=== PATIENT | female | born 1990 | race Caucasian/White ===

== ENCOUNTER 2020-02-01 11:17 | Emergency (ER) | payer OTHER, MEDICAID, SELFPAY ==
[2020-02-01 11:20] VITALS: BP 147/81; PULSE 86; RESP 20; TEMP 36.9; O2SAT 99
--- NOTE | 2020-02-01 11:36 | PC.NURSE ---
Has been using inhaler at home for shortness of breath w/o improvement.
[2020-02-01 11:37] VITALS: BP 120/76; PULSE 82; RESP 16; O2SAT 99
--- NOTE | 2020-02-01 11:52 | DI.RAD.S_ITS ---
PROCEDURE: XR CHEST 1V INDICATIONS: Short of breath TECHNIQUE: One view of the chest was acquired. COMPARISON: [facility], RG, XR CXR 2V, 05/09/2006, 11:24. FINDINGS: Surgical changes and devices: None. Lungs and pleura: Lungs are clear. No pleural effusions or pneumothorax. Mediastinum: Mediastinal contours appear normal. Heart size is normal. Bones and chest wall: No suspicious bony lesions. Overlying soft tissues appear unremarkable. IMPRESSION: Clear lungs. No acute cardiopulmonary process is seen. Dictated by: Dejan Cardona M.D. on 02/01/2020 at 11:17 Approved by: Dejan Cardona M.D. on 02/01/2020 at 11:18
--- NOTE | 2020-02-01 11:55 | ED_ITS ---
HPI - SOB/Dyspnea <Cesia Sanchez STAFF RADIOLOGIST - Last Filed: 02/01/20 13:27> General Chief Complaint: Shortness of Breath/Dyspnea Stated Complaint: Really bad chest pain, inhaler not working Time Seen by Provider: 02/01/20 11:29 Source: patient Mode of arrival: Ambulatory Limitations: no limitations History of Present Illness HPI Narrative: 29yo female with a history of asthma and smoking, presents to the emergency department for shortness of breath and chest pain over the past few days. She states she has had a sore throat and a dry cough for the past month, her symptoms started around the same time as her mother symptoms. She states her mother was exposed to COVID-19 and developed mild cold symptoms but was not tested. Patient states she reports a constant 2/10 dull aching/sharp stabbing chest pain that is mainly located under left breast, the pain occasionally moves to the substernal area, and the right shoulder intermittently. She states she experiences intermittent sharp pain as well. At its worst, the severity is 8/10. Patient states the pain is worse with palpation, deep breath, and movement. She states sometimes she feels it is difficult to take a deep breath. She has been using her albuterol inhaler which she uses for asthma, that had worked for a while. However over the past few days she feels like her inhaler is not working, she does not use a spacer. She states today she feels like her chest is tight. She does have mild associated nausea. She reports she had a subjective fever about a week ago that lasted a few days, she did not measure her temperature. She takes methadone in usually has night sweats and is unsure if they are worse at this time, has been using methadone for years. 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 She denies any other symptoms such as headache, dizziness, productive cough, vomiting, diarrhea, abdominal pain, or any other concerns. She states she has and arm implant that she uses for control. Related Data Home Medications Medication Instructions Recorded Confirmed albuterol sulfate 2 inh INHALATION QID PRN 02/01/20 02/01/20 methadone 40 mg PO DAILY 02/01/20 02/01/20 Previous Rx's Medication Instructions Recorded cyclobenzaprine 10 mg PO BEDTIME PRN #14 tab 02/01/20 Allergies Allergy/AdvReac Type Severity Reaction Status Date / Time cefaclor [From [facility]] Allergy Unknown Verified 02/01/20 11:30 sulfamethoxazole Allergy Unknown Verified 02/01/20 11:30 [From [facility]] trimethoprim [From [facility]] Allergy Unknown Verified 02/01/20 11:30 Review of Systems <RAMIN Berumen - Last Filed: 02/01/20 13:27> Review of Systems Narrative: REVIEW OF SYSTEMS: GENERAL: Reports subjective fever last week, see HPI. HENT: No head trauma or hearing loss. EYES: No vision changes. CARDIOVASCULAR: No chest pain or syncope. RESPIRATORY: Reports dry cough and shortness of breath. GASTROINTESTINAL: Novomiting, diarrhea, or constipation. MUSCULOSKELETAL: No weakness or injury. INTEGUMENTARY: No rash, lesions, or pruritus. NEURO: No memory loss, or confusion. Patient History <RAMIN Berumen - Last Filed: 02/01/20 13:27> Medical History Asthma (Acute) Social History Smoking Status: Current every day smoker Smoking Status: Current every day smoker alcohol intake frequency: 0-2 drinks per day Substance Use Type: former substance user Exam <RAMIN Berumen - Last Filed: 02/01/20 13:27> Initial Vital Signs Initial Vital Signs: Vital Signs Temperature 98.4 F 02/01/20 11:20 Pulse Rate 86 02/01/20 11:20 Respiratory Rate 20 02/01/20 11:20 Blood Pressure 147/81 H 02/01/20 11:20 Pulse Oximetry 99 02/01/20 11:20 PHYSICAL EXAMINATION: GENERAL: Well groomed, alert, and cooperative. Answers questions promptly and appropriately. Vital signs noted. HENT: Normocephalic, atraumatic. EYES: Conjunctiva pink, sclera white, no periorbital swelling. No discharge. CHEST: Normal to inspection and without deformities. Increased pain with palpation of left chest along with subclavicular line under left breast. Increased pain with palpation of left sternal costal border. CARDIOVASCULAR: S1 and S2 sounds normal. Regular rate and rhythm, no murmurs, clicks, or bruits. RESPIRATORY: Normal respiratory rate, trachea midline, airway patent. No stridor, nasal flaring or accessory muscle use. Able to speak in full sentences. Lungs are clear in all [place] without wheeze, rhonchi, or crackles. ABD: Soft and nontender. MUSCULOSKELETAL: Normal gait and coordination. Equal tone and mass bilaterally. EXTREMITIES: Moves all extremities. SKIN: Warm, dry, soft, appropriate color for ethnicity. No lesions, rashes, or wounds to visualized areas. NEURO: Alert and Oriented X 3. Good coordination. No ataxia or cognitive issues. PSYCH: Appropriate affect and mood. <Franklyn Ji MD - Last Filed: 02/02/20 08:16> Initial Vital Signs Initial Vital Signs: Vital Signs Temperature 98.4 F 02/01/20 11:20 Pulse Rate 86 02/01/20 11:20 Respiratory Rate 20 02/01/20 11:20 Blood Pressure 147/81 H 02/01/20 11:20 Pulse Oximetry 99 02/01/20 11:20 Scores <RAMIN Berumen - Last Filed: 02/01/20 13:27> PERC Score Age greater than or equal to 50 years: No Heart rate greater than or equal to 100 bpm: No Room Air O2 Sat less than 95%: No Unilateral leg swelling: No Recent trauma or surgery: No Hemoptysis: No Prior PE or DVT: No Hormone Use: No Total PERC Score: 0 Wells' Criteria for PE Clinical signs and symptoms of DVT: No PE is #1 Dx or equally likely: No Heart rate > 100: No Immobilization at least 3 days or surg in previous 4 weeks: No History of PE or DVT: No Hemoptysis: No Malignancy w/Treatment within 6 months or palliative: No Wells' PE Score total: 0 Course <RAMIN Berumen - Last Filed: 02/01/20 13:27> Course Course Narrative: Patient reported minor improvement after administration of albuterol with spacer. She was given Toradol before discharge, reported mild improvement after administration. Orders Ordered: Discontinued Medications Albuterol (Ventolin Hfa) 2 puff INH NOW ONE Stop: 02/01/20 11:53 Last Admin: 02/01/20 11:58 Dose: 2 puff Documented by: GILLIAN Ketorolac Tromethamine (Toradol) 30 mg IM NOW ONE Stop: 02/01/20 12:48 Last Admin: 02/01/20 12:57 Dose: 30 mg Documented by: SERGEI Consultations Consultation #1: Patient staffed with Dr. Ji, discussed symptoms, tests, results, and treatment. Vital Signs Vital signs: Vital Signs - 8 hr 02/01/20 11:20 02/01/20 11:37 02/01/20 12:01 Temperature 98.4 F Pulse Rate 86 82 73 Respiratory Rate 20 16 18 Blood Pressure 147/81 H Blood Pressure [Right Arm] 120/76 Pulse Oximetry 99 99 94 02/01/20 13:00 Temperature Pulse Rate 64 Respiratory Rate 18 Blood Pressure Blood Pressure [Right Arm] 112/70 Pulse Oximetry 99 <Franklyn Ji MD - Last Filed: 02/02/20 08:16> Orders Ordered: Discontinued Medications Albuterol (Ventolin Hfa) 2 puff INH NOW ONE Stop: 02/01/20 11:53 Last Admin: 02/01/20 11:58 Dose: 2 puff Documented by: GILLIAN Ketorolac Tromethamine (Toradol) 30 mg IM NOW ONE Stop: 02/01/20 12:48 Last Admin: 02/01/20 12:57 Dose: 30 mg Documented by: SERGEI Vital Signs Vital signs: Vital Signs - 8 hr 02/01/20 11:20 02/01/20 11:37 02/01/20 12:01 Temperature 98.4 F Pulse Rate 86 82 73 Respiratory Rate 20 16 18 Blood Pressure 147/81 H Blood Pressure [Right Arm] 120/76 Pulse Oximetry 99 99 94 02/01/20 13:00 Temperature Pulse Rate 64 Respiratory Rate 18 Blood Pressure Blood Pressure [Right Arm] 112/70 Pulse Oximetry 99 MDM - SOB/Dyspnea <RAMIN Berumen - Last Filed: 02/01/20 13:27> Medical Records Attestation: I reviewed the patient's medical records. Lab Data Attestation: I reviewed the patient's lab results. Labs: Lab Results 02/01/20 Range/Units 12:01 COVID-19 PCR Not detected (Not Detect) Imaging Data Chest x-ray: Radiologist's Impression: [address] [place] [id number] XRay Report Signed Patient: Mirta Topete [facility]#: [id number] : 1990Acct:[id number] Age/Sex: 29 / FDate of Service: 02/01/20 Loc: ED Accession Number: [id number] Procedure: XR chest 1V Ordering Provider: Cesia Sanchez PROCEDURE: XR CHEST 1V INDICATIONS: Short of breath TECHNIQUE: One view of the chest was acquired. COMPARISON: [facility], RG, XR CXR 2V, 05/09/2006, 11:24. FINDINGS: Surgical changes and devices: None. Lungs and pleura: Lungs are clear. No pleural effusions or pneumothorax. Mediastinum: Mediastinal contours appear normal. Heart size is normal. Bones and chest wall: No suspicious bony lesions. Overlying soft tissues appear unremarkable. IMPRESSION: Clear lungs. No acute cardiopulmonary process is seen. Dictated by: Dejan Cardona M.D. on 02/01/2020 at 11:17 Approved by: Dejan Cardona M.D. on 02/01/2020 at 11:18 ECG Data Interpretation: Normal sinus rhythm, rate 72, FL interval 155, QTC 393. No ST elevation or ST depression. No T-wave abnormality. EKG also viewed by Dr. Ji per protocol. [facility] Narrative Medical decision making narrative: 29-year-old with a history of smoking and asthma, presents emergency department complaining of atypical chest pain and tightness. Differential includes most likely musculoskeletal etiology such as costochondritis (pain reproducible on palpation, history of respiratory illness with cough over the past few weeks, history of asthma, clear chest x-ray, patient hemodynamically stable, low risk factors). Less likely PE due to negative well's criteria and PERC score, patient is low risk, non tachycardic, and oxygen saturations above 96%. Less likely cardiac in etiology due to reports of chest tightness and sharp chest pain that radiates in different areas without exertion, low risk factors, pain reproducible with palpation. There is some concern about respiratory infection due to possible exposure to COVID-19. Chest x-ray does not reveal any patchy infiltrates or pneumonia, patient is non tachycardic, non tachypneic, non hypoxic. She was swabbed for COVID-19 but is a candidate for discharge. This possible that her asthma may be contributing however slightly less likely as lung sounds were clear without wheezes. She was given Toradol which she reports improved pain. She was also given a muscle relaxer to help with the musculoskeletal component of pain at night when she sleeps. Patient was given very strict return precautions for new or worsening symptoms. She was given a spacer to use with her inhaler as this may also be a contributing factor. She was encouraged to follow up with her primary care provider. Strict return precautions given. Patient agreed to plan of care verbalized understanding. <Franklyn Ji MD - Last Filed: 02/02/20 08:16> Lab Data Labs: Lab Results 02/01/20 Range/Units 12:01 COVID-19 PCR Not detected (Not Detect) Discharge Plan Departure Patient Disposition: Home Clinical Impression: Costochondral chest pain Discharge Date/Time: 02/01/20 13:23 Instructions: DI for Costochondritis, Coronavirus Disease 2019 Activity Restrictions/Additional Instructions: Thank you for entrusting me with your care today. As discussed, your chest x-ray is negative for any concerning findings. I suspect your symptoms are most likely caused by a combination of inflammation between your ribs and chest wall, your past upper respiratory virus, and associated asthma. I recommend taking 400-600 mg of ibuprofen every 8 hours for the next 3 days to help with inflammation and pain. I have also prescribed you a muscle relaxer. These medications can make you drowsy, it is best to take them at night. Do not drive with these medication. You have been tested for COVID-19. This test may take 1-6 days for results to return, we will call you with these results. Please remain in quarantine with self isolation at home for 3 days after your symptoms have completely resolved. Drink lots of fluids, take Tylenol for fever, get extra rest, clean all surfaces, cover your cough, wash your hands frequently, and avoid sharing any personal items. If you need to seek medical care, please call the clinic or the emergency department before your arrival. I recommend following up with her primary care provider in the next 1-2 weeks for further evaluation if your symptoms continue. Please return emergency department for any new or worsening symptoms such as worsening pain, uncontrollable vomiting, high fevers, severe shortness of breath, wheezing, or any other concerns. Prescriptions: New cyclobenzaprine 10 mg tablet 10 mg PO BEDTIME PRN (Reason: muscle spasm) Qty: 14 RF: 0 No Action methadone 40 mg Tablet,Soluble 40 mg PO DAILY RF: 0 albuterol sulfate 90 mcg/actuation HFA aerosol inhaler 2 inh INHALATION QID PRN (Reason: Wheezing) RF: 0 Referrals: Vernon Fernandes DO [Primary Care Provider] -
[2020-02-01] MEDS: ALBUTEROL HFA 60 PUFF/8 GM INH INH (11:58)
[2020-02-01 12:01] VITALS: PULSE 73; RESP 18; O2SAT 94
[2020-02-01] MEDS: KETOROLAC 60 MG/2 ML VIAL 30 MG IM (12:57)
[2020-02-01 13:00] VITALS: BP 112/70; PULSE 64; RESP 18; O2SAT 99
[2020-02-02 02:18] LABS: COVID19 Sendout Not Detected (Not Detect)
== END 2020-02-01 13:23 | disposition home or self-care (01) ==
PROVIDERS: Emergency Provider Nurse Practitioner; PCP Family Medicine
DX: R07.89 Other chest pain (principal); R06.02 Shortness of breath; R68.89 Other general symptoms and signs; J02.9 Acute pharyngitis, unspecified; R05 Cough
CPT/HCPCS: 71045; 87635; 93005; 93010; 94640; 96372; 99284; J1885

== ENCOUNTER 2020-04-22 21:06 | Emergency (ER) | payer OTHER, MEDICAID, SELFPAY ==
[2020-04-22 21:14] VITALS: BP 129/89; PULSE 91; RESP 15; TEMP 37.5; O2SAT 99; BMI 23.7
--- NOTE | 2020-04-22 21:14 | DI.RAD.S_ITS ---
PROCEDURE: XR CHEST 1V INDICATIONS: SOB, chest pain TECHNIQUE: One view of the chest was acquired. COMPARISON: [facility], [place], XR CHEST 1V, 02/01/2020, 11:57. FINDINGS: Surgical changes and devices: None. Lungs and pleura: Lungs are clear. No pleural effusions or pneumothorax. Mediastinum: Mediastinal contours appear normal. Heart size is normal. Bones and chest wall: No suspicious bony lesions. Overlying soft tissues appear unremarkable. IMPRESSION: No acute cardiopulmonary pathology. Dictated by: Javier Shelley M.D. on 04/22/2020 at 22:24 Approved by: Javier Shelley M.D. on 04/22/2020 at 22:25
[2020-04-22] MEDS: SODIUM CHLORIDE 0.9% 1,000 ML 150 ML IV (21:24)
--- NOTE | 2020-04-22 21:24 | ED.CHESTPAIN ---
HPI - Chest Pain General Chief Complaint: Chest Pain Stated Complaint: Chest pain,started 3.5 months Time Seen by Provider: 04/22/20 21:11 Source: patient Mode of arrival: Ambulatory Limitations: no limitations History of Present Illness HPI narrative: 30F smoker with history of asthma presents at the request of her primary care provider for evaluation. She has been having sharp and stabbing anterior chest pain with radiation to her back and shortness of breath off and on for about 3 and half months. Due to the fact that she smokes, has not resolved typical therapies and also takes control she was sent for evaluation of a possible pulmonary embolism. She denies any dizziness, weakness or lightheadedness. She denies any hemoptysis. She denies fever or chills. She has had no urinary complaints such as dysuria, frequency or urgency. She denies any change in bowel habits. She denies any history of blood clot, recent travel or swelling of her lower extremities. MD complaint: chest pain Onset (ago): month(s) Duration: intermittent Severity: moderate Quality: sharp Pain radiation: back Relieving factors: nothing Exacerbating factors: inspiration Associated symptoms: dyspnea Related Data On Oral Contraceptives: Yes Home Medications Medication Instructions Recorded Confirmed albuterol sulfate 2 inh INHALATION QID PRN 02/01/20 02/01/20 methadone 40 mg PO DAILY 02/01/20 02/01/20 Previous Rx's Medication Instructions Recorded cyclobenzaprine 10 mg PO BEDTIME PRN #14 tab 02/01/20 prednisone See Rx Instructions .ROUTE 04/22/20 .COMPLEX #30 tab Allergies Allergy/AdvReac Type Severity Reaction Status Date / Time cefaclor [From [facility]] Allergy Unknown Verified 04/22/20 21:08 sulfamethoxazole Allergy Unknown Verified 04/22/20 21:08 [From [facility]] trimethoprim [From ] Allergy Unknown Verified 04/22/20 21:08 Review of Systems Constitutional Constitutional: Denies chills, Denies fatigue, Denies fever(s), Denies frequent falls, Denies lethargy and Denies weakness Eyes Eyes: Denies change in vision, Denies eye discharge, Denies irritation and Denies loss of vision ENT Ears, Nose, Mouth, and Throat: Denies change in voice, Denies dizziness, Denies neck pain, Denies sore throat and Denies throat swelling Cardiovascular Cardiovascular: Reports chest pain, Denies irregular heart rhythm, Denies lightheadedness, Denies palpitations, Reports dyspnea, Denies dyspnea on exertion and Denies orthopnea Respiratory Respiratory: Denies cough, Reports dyspnea, Denies dyspnea on exertion and Denies wheezing Gastrointestinal Gastrointestinal: Denies abdominal pain, Denies change in bowel habits, Denies diarrhea, Denies nausea and Denies vomiting Musculoskeletal Musculoskeletal: Denies neck pain and Denies numbness Integumentary/Breasts Skin/Breast: Denies pruritus, Denies erythema, Denies rash and Denies wounds Neurologic Neurologic: Denies behavioral changes, Denies confusion, Denies dizziness, Denies frequent falls, Denies loss of vision, Denies numbness and Denies weakness Psychiatric Psychiatric: Denies anxiety, Denies behavioral changes, Denies confusion, Denies depression, Denies homicidal ideation and Denies suicidal ideation Endocrine Endocrine: Denies fatigue, Denies flushing and Denies palpitations Hematologic/Lymphatic Hematologic/Lymphatic: Denies easy bruising Allergic/Immunologic Allergic/Immunologic: Denies urticaria, Denies throat swelling and Denies wheezing Patient History Medical History Asthma (Acute) Social History Smoking Status: Current every day smoker Smoking Status: Current every day smoker alcohol intake frequency: 0-2 drinks per day Substance Use Type: former substance user Exam Narrative Exam Narrative: GENERAL: [30] year old patient appears stated age. Well-nourished, well-developed patient, in mild distress. HEAD: Atraumatic. Normocephalic. EYES: Pupils equal round and reactive. Extraocular motions intact. No scleral icterus. No injection or drainage. ENT: Nose without bleeding, purulent drainage. Throat without erythema, tonsillar hypertrophy or exudate. Airway patent. NECK: Trachea midline. Non tender CARDIOVASCULAR: Regular rate and rhythm without murmurs, gallops, or rubs. RESPIRATORY: Clear to auscultation. Breath sounds equal bilaterally. No wheezes, rales, or rhonchi. GASTROINTESTINAL: Abdomen soft, non-tender, nondistended. EXTREMITIES: No edema or joint tenderness. BACK: Nontender without deformity or crepitance. No flank tenderness. NEURO: AOx3. SKIN: No rash or erythema of visible areas Initial Vital Signs Initial Vital Signs: Vital Signs Temperature 99.5 F 04/22/20 21:14 Pulse Rate 91 H 04/22/20 21:14 Respiratory Rate 15 04/22/20 21:14 Blood Pressure 129/89 04/22/20 21:14 Pulse Oximetry 99 04/22/20 21:14 Course Orders Ordered: ED Orders 04/22/20 21:14 XR chest 1V Stat EKG-12 Lead Stat 04/22/20 21:30 Complete Blood Count AUTO DIFF Stat Comprehensive Metabolic Panel Stat D Dimer Stat Lipase Stat NT-proBNP (BNP-Adult 18+) Stat Troponin & CK Cardiac Panel Stat Discontinued Medications Sodium Chloride (Normal Saline 0.9%) 1,000 mls @ 150 mls/hr IV CONT LUIS ARMANDO Last Infusion: 04/22/20 22:55 Dose: 0 mls/hr Documented by: Admin: 04/22/20 21:24 Dose: 150 mls/hr Documented by: JOSH Ketorolac Tromethamine (Toradol) 15 mg IV NOW ONE Stop: 04/22/20 21:58 Last Admin: 04/22/20 22:21 Dose: 15 mg Documented by: ANDREINAL Methylprednisolone (Solu-Medrol 125 Mg Vial) 125 mg IV NOW ONE Stop: 04/22/20 22:39 Last Admin: 04/22/20 22:46 Dose: 125 mg Documented by: JOSH Vital Signs Vital signs: Vital Signs - 8 hr 04/22/20 21:14 04/22/20 21:45 04/22/20 22:30 Temperature 99.5 F Pulse Rate 91 H 80 76 Respiratory Rate 15 16 16 Blood Pressure 129/89 130/68 120/77 Pulse Oximetry 99 99 97 MDM - Chest Pain Lab Data Result diagrams: 04/22/20 21:30 04/22/20 21:30 Labs: Lab Results 04/22/20 04/22/20 04/22/20 Range/Units 21:30 21:30 21:30 WBC 5.8 (4.5-11.0) X10^3/uL RBC 4.21 (4.0-5.2) X10^6/uL Hgb 12.9 (12.0-16.0) g/dL Hct 36.3 (36-46) % MCV 86.1 (80-100) fL MCH 30.6 (26-34) PG MCHC 35.5 (30-36) % RDW 13.5 (11.6-14.8) % Plt Count 184 (150-400) X10^3/uL Neut % (Auto) 50.7 (50-75) % Lymph % (Auto) 38.3 (25-40) % Morrill % (Auto) 8.1 (3-14) % Eos % (Auto) 2.3 (2-4) % Baso % (Auto) 0.6 (0-2) % Neut # (Auto) 2900 (4758-8466) /uL Lymph # (Auto) 2200 (9795-1120) /uL Morrill # (Auto) 500 (0-900) /uL Eos # (Auto) 100 (0-450) /uL Baso # (Auto) 0 (0-100) /uL D-Dimer < 200 (<230) ng/mL Sodium 140 (137-145) mmol/L Potassium 3.8 (3.4-5.1) mmol/L Chloride 108 H (98-107) mmol/L Carbon Dioxide 24 (22-32) mmol/L BUN 16 (7-17) mg/dL Creatinine 0.69 (0.52-1.04) mg/dL Estimated GFR > 60.0 (>60) mL/min BUN/Creatinine Ratio 23.2 H (6-22) Glucose 79 (70-100) mg/dL Calcium 9.8 (8.4-10.2) mg/dL Total Bilirubin 0.4 (0.2-1.3) mg/dL AST 28 (14-36) IU/L ALT 16 (<35) IU/L Alkaline Phosphatase 44 (38-126) U/L Total Creatine Kinase 117 (30-135) U/L CK-MB (CK-2) 1.41 (<2.37) ng/mL CK-MB (CK-2) Rel Index 1.2 L (1.5-5.0) % Troponin I < 0.012 (0.01-0.034) ng/mL NT-Pro-B Natriuret Pep 31 (<125) pg/mL Total Protein 7.7 (6.3-8.2) g/dL Albumin 4.5 (3.5-5.0) g/dL Globulin 3.2 (1.7-4.1) g/dL Albumin/Globulin Ratio 1.4 (1.0-2.8) Lipase 66 (23-300) U/L ECG Data Attestation: I personally reviewed and interpreted this ECG as follows: Prior ECG tracings: not available for review Interpretation: EKG is normal sinus rhythm rate [ 85] and free of any signs of ischemia or ectopy. No ST segmental elevation or depression. No T wave inversions MDM Narrative Medical decision making narrative: Multiple causes of chest pain considered including NC, PE, pneumothorax, pneumonia, aortic dissection, and pleurisy. Patient reports no radiation, no diaphoresis, no provocation with exertion, and no vomiting Multiple etiologies for patient's symptoms considered including: [All the above plus asthma versus seasonal allergies versus viral upper respiratory versus other] Patient's symptoms improved or duration of stay with above-stated therapies. Findings and discharge diagnosis discussed with patient/family followed by verbalization of understanding Return precautions discussed with patient/family whom verbalize understanding. Discharge Plan Departure Patient Disposition: Home Clinical Impression: Atypical chest pain Asthma exacerbation Qualifiers: Asthma severity: mild Asthma persistence: intermittent Qualified Code(s): J45.21 - Mild intermittent asthma with (acute) exacerbation Discharge Date/Time: 04/22/20 22:58 Instructions: DI for Atypical Chest Pain Activity Restrictions/Additional Instructions: *You have been diagnosed with [atypical chest pain, heart attack and blood clot considered but thought unlikely given result of our findings] *What to do: *Take medications as directed *Follow up with your primary care provider in 2-3 days, call for an appointment. Let them know you were seen in the Emergency Department and that we ask that you be seen in follow up *Return to ER if you should have any new, worsening or concerning symptoms Prescriptions: New prednisone 10 mg tablet See Rx Instructions .ROUTE .COMPLEX Qty: 30 RF: 0 No Action methadone 40 mg Tablet,Soluble 40 mg PO DAILY RF: 0 albuterol sulfate 90 mcg/actuation HFA aerosol inhaler 2 inh INHALATION QID PRN (Reason: Wheezing) RF: 0 cyclobenzaprine 10 mg tablet 10 mg PO BEDTIME PRN (Reason: muscle spasm) Qty: 14 RF: 0 Referrals: Vernon Fernandes DO [Primary Care Provider] -
[2020-04-22 21:39] LABS: Add Manual Diff / Slide Review NO; Basophils Absolute Auto 0 /uL (0-100); Basophils Percent Auto 0.6 % (0-2); Eosinophils Absolute Auto 100 /uL (0-450); Eosinophils Percent Auto 2.3 % (2-4); Hematocrit 36.3 % (36-46); Hemoglobin 12.9 g/dL (12.0-16.0); Lymphocytes Absolute Auto 2200 /uL (1100-4500); Lymphocytes Percent Auto 38.3 % (25-40); Mean Corpuscular HGB Conc 35.5 % (30-36); Mean Corpuscular Hemoglobin 30.6 PG (26-34); Mean Corpuscular Volume 86.1 fL (80-100); Monocytes Absolute Auto 500 /uL (0-900); Monocytes Percent Auto 8.1 % (3-14); Neutrophils Absolute Auto 2900 /uL (1500-7000); Neutrophils Percent Auto 50.7 % (50-75); Platelet Count 184 X10^3/uL (150-400); Red Blood Cell Count 4.21 X10^6/uL (4.0-5.2); Red Cell Distribution Width 13.5 % (11.6-14.8); White Blood Cell Count 5.8 X10^3/uL (4.5-11.0)
[2020-04-22 21:45] VITALS: BP 130/68; PULSE 80; RESP 16; O2SAT 99
[2020-04-22 21:48] LABS: D Dimer < 200 ng/mL (<230)
[2020-04-22 21:49] LABS: Alanine Aminotransferase 16 IU/L (<35); Albumin 4.5 g/dL (3.5-5.0); Albumin Globulin Ratio 1.4 (1.0-2.8); Alkaline Phosphatase 44 U/L (38-126); Aspartate Aminotransferase 28 IU/L (14-36); BUN Creatinine Ratio 23.2 (6-22); Bilirubin Total 0.4 mg/dL (0.2-1.3); Blood Urea Nitrogen 16 mg/dL (7-17); Calcium 9.8 mg/dL (8.4-10.2); Carbon Dioxide 24 mmol/L (22-32); Chloride 108 mmol/L (98-107); Creatine Kinase 117 U/L (30-135); Estimated Glomerular Filt Rate > 60.0 mL/min (>60); Globulin 3.2 g/dL (1.7-4.1); Glucose 79 mg/dL (70-100); Lipase 66 U/L (23-300); Potassium 3.8 mmol/L (3.4-5.1); Sodium 140 mmol/L (137-145); Total Protein 7.7 g/dL (6.3-8.2)
[2020-04-22 22:01] LABS: NT-proBNP (BNP-Adult 18+) 31 pg/mL (<125); Troponin I < 0.012 ng/mL (0.01-0.034)
[2020-04-22] MEDS: KETOROLAC 60 MG/2 ML VIAL 15 MG IV (22:21)
[2020-04-22 22:30] VITALS: BP 120/77; PULSE 76; RESP 16; O2SAT 97
[2020-04-22 22:45] LABS: CKMB % Relative Index 1.2 % (1.5-5.0); Creatine Kinase MB 1.41 ng/mL (<2.37); HEMOLYSIS 24 (0-50)
[2020-04-22] MEDS: methylPREDNISolone 125 MG/2 ML VIAL IV (22:46)
== END 2020-04-22 22:58 | disposition home or self-care (01) ==
PROVIDERS: Emergency Provider Emergency Medicine; PCP Family Medicine
DX: R07.89 Other chest pain (principal); J45.21 Mild intermittent asthma with (acute) exacerbation
CPT/HCPCS: 36415; 71045; 80053; 82550; 82553; 83690; 83880; 84484; 85025; 85379; 93005; 93010; 96361; 96374; 96375; 99284; J1885; J2930

== ENCOUNTER → 2020-06-13 11:03 | Outpatient (CLI) | payer OTHER, MEDICAID, SELFPAY ==
--- NOTE | 2020-06-13 11:05 | DI.RAD.S_ITS ---
PROCEDURE: XR CHEST 2V INDICATIONS: shortness of breath TECHNIQUE: 2 views of the chest were acquired. COMPARISON: [facility], CR, XR RIBS LT MIN 3V W CXR1V, 06/13/2020, 10:56. [facility], CR, XR CHEST 1V, 02/01/2020, 11:57. [facility], CR, XR CHEST 1V, 04/22/2020, 21:58. FINDINGS: Surgical changes and devices: Cholecystectomy clips are seen. Lungs and pleura: Lungs are clear. No pleural effusions or pneumothorax. Mediastinum: Mediastinal contours are normal. Heart size is normal. Bones and chest wall: No suspicious bony abnormalities. Soft tissues appear unremarkable. IMPRESSION: No acute cardiopulmonary process is seen. Dictated by: Dejan Cardona M.D. on 06/13/2020 at 10:23 Approved by: Dejan Cardona M.D. on 06/13/2020 at 10:24
--- NOTE | 2020-06-13 11:05 | DI.RAD.S_ITS ---
PROCEDURE: XR RIBS LT MIN 3V W CXR1V INDICATIONS: l rib pain TECHNIQUE: 2 views of the left ribs were acquired, along with a single view chest. COMPARISON: [facility], CR, XR CHEST 2V, 06/13/2020, 10:56. [facility], CR, XR CHEST 1V, 04/22/2020, 21:58. [facility], CR, XR CHEST 1V, 02/01/2020, 11:57. FINDINGS: Surgical changes and devices: None. Bones and chest wall: No fractures or dislocations. No suspicious bony lesions. Overlying soft tissues appear unremarkable. Lungs and pleura: No pleural effusions or pneumothorax. Lungs appear clear. Mediastinum: Mediastinal contours appear normal. Heart size is normal. IMPRESSION: Negative for rib fracture. No pneumothorax. Dictated by: Dejan Cardona M.D. on 06/13/2020 at 10:22 Approved by: Dejan Cardona M.D. on 06/13/2020 at 10:23
== END ==
PROVIDERS: PCP Family Medicine; Referring Provider Family Medicine; Visit Provider Physician Assistant
DX: R06.02 Shortness of breath (principal); R07.81 Pleurodynia
CPT/HCPCS: 71046; 71101

== ENCOUNTER → 2021-03-15 11:12 | Outpatient (CLI) | payer OTHER, MEDICAID, SELFPAY ==
[2021-03-15 16:17] LABS: COVID-19 CEPHEID PCR (VTM/NP) Negative (Negative)
== END ==
PROVIDERS: PCP Family Medicine; Referring Provider Physician Assistant; Visit Provider Physician Assistant
DX: Z20.822 Contact with and (suspected) exposure to COVID-19 (principal)
CPT/HCPCS: U0003

== ENCOUNTER 2021-12-16 20:01 | Observation (INO) | payer OTHER, MEDICAID, SELFPAY ==
--- NOTE | 2021-12-16 20:18 | ED_ITS ---
HPI - Neuro Symptoms/Deficit General Chief Complaint: Neuro Symptoms/Deficit Stated Complaint: sudden visual changes Time Seen by Provider: 12/16/21 20:10 History of Present Illness HPI Narrative: 31-year-old female smoker and former IV drug abuser presents with a chief complaint of a sudden onset vision change 1 hour ago. She states she was in her normal state of health and was putting something in the fireplace and upon standing had a sudden visual field cut in both eyes which she reports as the left side of her vision. She denies any trouble with speech, dizziness or lightheadedness. She denies any trouble with ambulation. She denies numbness, tingling or weakness of her extremities. She has no chest pain or shortness of breath. She denies any recent trauma or injury. Last known well was 1914. She is activated as a code stroke Related Data Home Medications Medication Instructions Recorded Confirmed methadone 40 mg soluble tablet 40 mg PO DAILY 02/01/20 06/13/20 Previous Rx's Medication Instructions Recorded albuterol sulfate 90 mcg/actuation 2 inh INHALATION QID PRN #18 gram 06/13/20 aerosol inhaler cyclobenzaprine 10 mg tablet 10 mg PO BEDTIME PRN #14 tab 06/14/20 prednisone 10 mg tablet See Rx Instructions .ROUTE 06/14/20 .COMPLEX #30 tab Allergies Allergy/AdvReac Type Severity Reaction Status Date / Time cefaclor [From [facility]] Allergy Unknown Verified 06/13/20 15:40 sulfamethoxazole Allergy Unknown Verified 06/13/20 15:40 [From [facility]] trimethoprim [From [facility]] Allergy Unknown Verified 06/13/20 15:40 Review of Systems Review of Systems Narrative: GENERAL: Denies chills, fatigue, malaise, fever, sweats. HEENT: Denies sinus pain, ear pain, sore throat, difficulty swallowing, dizziness. RESPIRATORY: Denies dyspnea, cough, wheezing, hemoptysis, sputum. CARDIOVASCULAR: Denies chest pain, palpitations, orthopnea, edema, GASTROINTESTINAL: Denies nausea, vomiting, abdominal pain, diarrhea, constipation, melena. : Denies dysuria, frequency, incontinence, hematuria, urinary retention. MUSCULOSKELETAL: denies weakness, joint pain, or bony pain SKIN: Denies rash, skin lesions, or other NEUROLOGIC: See HPI PSYCHIATRIC: No concerning psychosocial issues. 12 point review of systems is negative except for those stated above Patient History Medical History (Updated 12/16/21 @ 23:55 by Calos Ariza DO) Asthma Social History Smoking Status: Former smoker Smoking Status: Current every day smoker alcohol intake frequency: 0-2 drinks per day Substance Use Type: former substance user Exam Narrative Exam Narrative: GENERAL: [31] year old patient appears stated age. Well-developed patient, in mild distress. HEAD: Atraumatic. Normocephalic. EYES: Pupils equal round and reactive. Extraocular motions intact. No scleral icterus. No injection or drainage. ENT: Nose without bleeding, purulent drainage. Throat without erythema, tonsillar hypertrophy or exudate. Airway patent. NECK: Trachea midline. Non tender CARDIOVASCULAR: Regular rate and rhythm without murmurs, gallops, or rubs. RESPIRATORY: Clear to auscultation. Breath sounds equal bilaterally. No wheezes, rales, or rhonchi. GASTROINTESTINAL: Abdomen soft, non-tender, nondistended. EXTREMITIES: No edema or joint tenderness. BACK: Nontender without deformity or crepitance. No flank tenderness. NEURO: AOx3. SKIN: No rash or erythema of visible areas Initial Vital Signs Initial Vital Signs: Vital Signs Temperature 99.5 F 12/16/21 20:19 Pulse Rate 96 H 12/16/21 20:19 Respiratory Rate 16 12/16/21 20:19 Blood Pressure 164/94 H 12/16/21 20:19 Pulse Oximetry 99 12/16/21 20:19 Scores NIH Stroke Scale Level of Conciousness: Alert, keenly responsive Ask month/age: Answers both questions correctly. Open/close eyes, close hand: Performs both tasks correctly Best gaze horizontal: Normal Visual melton: Partial hemianopia (bilateral LUQ quadrantinopia) Facial palsy: Normal symetrical movement Left arm drift: No drift for full 10 sec Right arm drift: No drift for full 10 sec Left leg drift: No drift for full 5 sec Right leg drift: No drift for full 5 sec Limb ataxia: Absent Sensory on face/arms/legs: Normal, no sensory loss Best language: No aphasia, normal Dysarthria: Normal Extinction or inattention: No abnormality Total NIH Stroke scale score: 1 Course Orders Ordered: ED Orders 12/16/21 20:18 CT Stroke Stat Complete Blood Count AUTO DIFF Stat Comprehensive Metabolic Panel Stat Troponin & CK Cardiac Panel Stat 12/16/21 21:08 Urine Drug Screen, Rapid Stat Acetaminophen (Acetaminophen 325 Mg Tablet) 650 mg PO Q6HR PRN PRN Reason: pain Aspirin (Aspirin Ec 81 Mg Tablet) 81 mg PO DAILY LUIS ARMANDO Atorvastatin Calcium (Atorvastatin 20 Mg Tablet) 80 mg PO BEDTIME LUIS ARMANDO Ibuprofen (Ibuprofen 600 Mg Tablet) 600 mg PO Q6HR PRN PRN Reason: Fever/Mild Pain (1-3) Sumatriptan Succinate (Sumatriptan 25 Mg Tablet) 50 mg PO Q6H PRN PRN Reason: Headache Discontinued Medications Acetaminophen (Acetaminophen 325 Mg Tablet) 975 mg PO NOW ONE Stop: 12/17/21 00:00 Last Admin: 12/17/21 00:06 Dose: 975 mg Documented by: FRANCESCO Aspirin (Aspirin 325 Mg Tablet) 325 mg PO NOW ONE Stop: 12/17/21 00:33 Last Admin: 12/17/21 00:45 Dose: 325 mg Documented by: FRANCESCO Sodium Chloride (Normal Saline 0.9%) 1,000 mls @ 150 mls/hr IV CONT LUIS ARMANDO Stop: 12/17/21 00:37 Reevaluation(s) Reevaluation #1: delay in initial head CT as there is another CODE STROKE ahead of her from the inpatient Time: 20:25 Consultations Consultation #1: call to TeleStroke Please see their note for details, however upon return from noncontrast head CT tele stroke had an extensive evaluation and discussion with the patient and her mother. She did have a slight improvement symptoms which still only involved left upper quadrant of her visual field. After extensive discussion regarding the pros and cons of tPA patient states that she would not want this therapy. She understands the risks and benefits Time: 20:24 Vital Signs Vital signs: Vital Signs - 8 hr 12/16/21 20:19 12/16/21 23:11 Temperature 99.5 F Pulse Rate 96 H 83 Respiratory Rate 16 Blood Pressure 164/94 H 145/93 H Pulse Oximetry 99 99 MDM - Neuro Symptoms/Deficit Lab Data Result diagrams: 12/17/21 00:45 12/17/21 00:45 Labs: Lab Results 12/16/21 Range/Units 21:08 U Opiates 300ng/mL cut Negative (Negative) Ur Oxycodone Screen Negative (Negative) Urine Methadone Screen Negative (Negative) Ur Barbiturates Screen Negative (Negative) U Tricyclic Antidepress Negative (Negative) Ur Phencyclidine Scrn Negative (Negative) Ur Amphetamines Screen Negative (Negative) U Methamphetamines Scrn Negative (Negative) Ur MDMA Scrn (Ecstasy) Negative (Negative) U Benzodiazepines Scrn Negative (Negative) Urine Cocaine Screen Negative (Negative) U Marijuana (THC) Screen Negative (Negative) Point of Care Testing Test Results Negative Urine Dip Bedside Urine Glucose Negative Bedside Urine Bilirubin - Negative Bedside Urine Ketone - Negative Urine Specific Richardson 1.010 Bedside Urine Occult Blood - Negative Bedside Urine pH 6.5 Bedside Urine Protein - Negative Bedside Urine Urobilinogen - Negative Bedside Urine Nitrite - Negative Bedside Urine Leukocytes - Negative Esterase Imaging Data CT scan - head: Radiologist's Impression: [address] [address] [address] Scan Report Signed Patient: Mirta Topete MR#: [id number] : 1990 Acct:[id number] Age/Sex: 31 / F Date of Service: 12/16/21 Loc: ED Accession Number: [id number] ?? Procedure: CT Stroke Ordering Provider: Calos Ariza D.O. PROCEDURE:? CT STROKE ? INDICATIONS:? stroke symptoms ? TECHNIQUE:? Noncontrast 4.5 mm thick angled axial sections acquired from the foramen magnum to the vertex, with coronal reformats.? For radiation dose reduction, the following was used:? automated exposure control, adjustment of mA and/or kV according to patient size.? ? COMPARISON:? None. ? FINDINGS:? Image quality:? Excellent.? ? CSF spaces:? Basal cisterns are patent.? No extra-axial fluid collections.? Ventricles are normal in size and shape.? ? Brain:? No midline shift.? No intracranial masses or hemorrhage.? Mason-white matter interface is normal.? ? Skull and face:? Calvarium and visualized facial bones are intact, without suspicious lesions.? ? Sinuses:? Visualized sinuses and mastoids are clear.? ? IMPRESSION:? No acute intracranial abnormality. ? Findings were conveyed to the referring physician, Dr. Ariza, via Emergency Department staff on 12/16/2021 at 8:46 PM. ? ? This study fulfills neurological imaging criteria for inclusion or exclusion of acute stroke therapies based on available published neurological imaging guidelines.? ? ? Dictated by: Ventura Rhodes M.D. on 12/16/2021 at 20:45 ? ? Approved by: Ventura Rhodes M.D. on 12/16/2021 at 20:47 ? MDM Narrative Medical decision making narrative: Patient is a very difficult IV stick. Every nurse in the emergency department has made attempts. PICC team has been activated and were also unsuccessful in both arms. The patient is resting comfortably with stable vitals and symptoms. We will hold her overnight, temp blood work, or reactive a difficult IV team in the morning, and order echo and MRI Discharge Plan Departure Patient Disposition: Admitted as Observation Clinical Impression: Stroke Admit Date/Time: 12/17/21 00:33 Admit Provider: Sebastien Quintero
--- NOTE | 2021-12-16 20:18 | DI.CT.S_ITS ---
PROCEDURE: CT STROKE INDICATIONS: stroke symptoms TECHNIQUE: Noncontrast 4.5 mm thick angled axial sections acquired from the foramen magnum to the vertex, with coronal reformats. For radiation dose reduction, the following was used: automated exposure control, adjustment of mA and/or kV according to patient size. COMPARISON: None. FINDINGS: Image quality: Excellent. CSF spaces: Basal cisterns are patent. No extra-axial fluid collections. Ventricles are normal in size and shape. Brain: No midline shift. No intracranial masses or hemorrhage. Mason-white matter interface is normal. Skull and face: Calvarium and visualized facial bones are intact, without suspicious lesions. Sinuses: Visualized sinuses and mastoids are clear. IMPRESSION: No acute intracranial abnormality. Findings were conveyed to the referring physician, Dr. Ariza, via Emergency Department staff on 12/16/2021 at 8:46 PM. This study fulfills neurological imaging criteria for inclusion or exclusion of acute stroke therapies based on available published neurological imaging guidelines. Dictated by: Ventura Rhodes M.D. on 12/16/2021 at 20:45 Approved by: Ventura Rhodes M.D. on 12/16/2021 at 20:47
[2021-12-16 20:19] VITALS: BP 164/94; PULSE 96; RESP 16; TEMP 37.5; O2SAT 99; BMI 25.5
[2021-12-16 21:21] LABS: Ur Creatinine 20 (Normal); Ur Specific Gravity 1.015 (Normal); Urine pH 7 (Normal)
[2021-12-16 21:22] LABS: UR Morphine/Opiate cutoff 300 Negative (Negative); Urine Amphetamines Negative (Negative); Urine Barbiturates Negative (Negative); Urine Benzodiazepines Negative (Negative); Urine Cocaine Negative (Negative); Urine MDMA Negative (Negative); Urine Methadone Negative (Negative); Urine Methamphetamines Negative (Negative); Urine Oxycodone Negative (Negative); Urine Phencyclidine Negative (Negative); Urine Tetrahydrocannabinol Negative (Negative); Urine Tricyclic Antidepressant Negative (Negative)
[2021-12-16 23:11] VITALS: BP 145/93; PULSE 83; O2SAT 99
[2021-12-17] VITALS (19 sets, daily range): BP systolic 106–133; BP diastolic 57–80; PULSE 74–117; RESP 20; O2SAT 91–99; BMI 25.5
[2021-12-17] MEDS: ACETAMINOPHEN 325 MG TABLET 975 MG PO (00:06)
[2021-12-17] MEDS: ASPIRIN 325 MG TABLET PO (00:45)
--- NOTE | 2021-12-17 00:48 | DI.MRI.S_ITS ---
PROCEDURE: MR STROKE Pre- and post-contrast brain MRI, non-contrast brain MR angiogram, pre- and postcontrast neck MR angiogram INDICATIONS: change in mental status TECHNIQUE: Brain: Noncontrast axial T1 spin echo, axial T2 fast spin echo, sagittal and axial FLAIR, coronal T2 fast spin echo, axial gradient echo, axial diffusion and ADC through the brain. After the administration of contrast, axial 3D VIBE of the cranial vasculature and brain. Brain MRA: Non-contrast 3-D time of flight MR angiogram, with multiple hblvjqn-wncqojlzf-ivbetuivdg (MIP) reformats performed. Neck MRA: Axial and sagittal TruFISP through the neck. Coronal dynamic MR angiogram during administration of contrast in the arterial and venous phases, with 3-dimenstional kauerrr-icvbzkqqm-jfwtbvmbex (MIP) reformats constructed from subtraction images. COMPARISON: [facility], CT, CT STROKE, 12/16/2021, 20:32. FINDINGS: Image quality: Excellent. BRAIN: There is an area of restricted diffusion with low ADC signal in the right inferior occipital lobe. Corresponding FLAIR signal hyperintensity indicating cytotoxic edema. No associated mass effect or susceptibility. There is decreased regional parenchymal enhancement with enlargement/prominence of some immediately adjacent vasculature in this area presumably reflecting reactive hyperemia. Otherwise normal brain parenchymal signal intensity. No findings of mass effect or midline shift. BRAIN MR ANGIOGRAM: Anterior circulation: Intracranial internal carotid arteries are normal in size and enhancement. The flow within the paired anterior cerebral arteries is normal and symmetric. The flow within the middle cerebral arteries is normal and symmetric. The anterior communicating artery is seen. No stenoses, occlusions, or aneurysms. Posterior circulation: There is abrupt cut off of a right [employer] branch leading to the infarcted territory. Remaining posterior circulation is widely patent. NECK MR ANGIOGRAM: Carotids: Great vessels demonstrate a conventional anatomy as they arise from the aortic arch. The origins of the common carotid arteries appear patent. The calibers and courses of both common carotid arteries are normal. The bifurcation regions appear normal bilaterally. The internal carotid arteries demonstrate normal course and caliber. Posterior circulation: The origins of the vertebral arteries appear patent. More superior portions of both vertebral arteries demonstrate normal course and caliber, and join to form a normal appearing basilar artery. Miscellaneous: Subclavian arteries appear patent. Pre-contrast images through the neck show no soft tissue abnormalities. IMPRESSION: BRAIN MRI: Area of restricted diffusion in the right inferior occipital lobe consistent with acute infarct. BRAIN MR ANGIOGRAM: Abrupt cut off of a small right [employer] branch leading to the infarcted territory. Otherwise widely patent intracranial arterial circulation. NECK MR ANGIOGRAM: No hemodynamically significant stenosis or occlusion of the major extracranial arterial vasculature. Dictated by: Akash Cline M.D. on 12/17/2021 at 15:38 Approved by: Akash Cline M.D. on 12/17/2021 at 15:48
--- NOTE | 2021-12-17 00:50 | DI.ECHO.S_ITS ---
[place] +---------+ [facility] +---------+ : : [address] : : : : [id number] : : : : Phone: [phone] Echocardiogram Report + + :Name: LANDY BAR Study Date: 12/17/2021 Height: 71 in : :[facility] ReadingLocation: Weight: 183 lb : : Gender: Female BSA: 2.0 m2 : :: 1990 Age: 31 yrs BP: 127/68 mmHg: :Reason For Study: CVA : : Performed By: Shahid Villegas : :Referring: KRISTIE SALCEDO : + + Interpretation Summary Pt is covid positive. The patient has no peripheral line only a PICC line, so no bubble study performed. The left ventricle is normal in size. The ejection fraction is estimated to be 60-65%. The right ventricle is normal in size and function. No significant valvular pathology seen. The IVC is of normal diameter and collapses greater than 50% with a sniff. This suggests a low right atrial pressure of 3 mm Hg. Procedure: A two-dimensional transthoracic echocardiogram with color flow and Doppler was performed. The study quality was technically adequate. There is no prior echocardiogram noted for this patient. The patient was in normal sinus rhythm during the exam. The patient had frequent PVCs during the exam. Left Ventricle: The left ventricle is normal in size. There is normal left ventricular wall thickness. There is no thrombus. The ejection fraction is estimated to be 60-65%. There are no focal wall motion abnormalities. Diastolic parameters suggest probable normal left ventricular diastolic function and normal filling pressures. Right Ventricle: The right ventricle is normal in size and function. Atria: Both atria are normal in size. There is no Doppler evidence for an atrial septal defect. Mitral Valve: The mitral valve is normal in structure and function. There is trace mitral regurgitation. Aortic Valve: The aortic valve is trileaflet. The aortic valve opens well. There is no aortic valve stenosis. No aortic regurgitation is present. Tricuspid Valve: The tricuspid valve is normal in structure and function. Pulmonary artery pressures cannot be estimated because of the lack of a measurable TR jet velocity but the IVC suggests a CVP of around 3 mmHg. There is trace tricuspid regurgitation. Pulmonic Valve: The pulmonic valve leaflets are thin and pliable; valve motion is normal. There is trace pulmonic regurgitation. Great Vessels: The aortic root is normal size. The dimensions of the ascending aorta are normal. The pulmonary artery is normal size. The IVC is of normal diameter and collapses greater than 50% with a sniff. This suggests a low right atrial pressure of 3 mm Hg. Pericardium/ Pleura There is no pericardial effusion. There is no pleural effusion. MMode/2D Measurements & Calculations LVIDd: 4.7 cm LVOT diam: 2.2 cm LVIDs: 3.2 cm Ao root diam: 2.9 cm FS: 32.9 % asc Aorta Diam: 2.6 cm EPSS: 0.42 cm IVSd: 0.82 cm LVPWd: 0.74 cm LV shane. diameter/BSA (cm/m^2): 2.3 LV sys. diameter/BSA (cm/m^2): 1.6 LA A2 area: 17.3 cm2 RA long axis: 4.3 cm LA A4 area: 14.2 cm2 RA area: 11.5 cm2 LA length (vol): 4.9 cm RA vol: 26.0 ml LA vol: 42.8 ml RA : 12.8 ml/m2 LA vol index: 21.1 ml/m2 IVC diam: 1.6 cm TAPSE: 2.4 cm Doppler Measurements & Calculations Ao V2 max: 128.3 cm/sec LVOT Max Noel: 119.4 cm/sec Ao V2 mean: 100.2 cm/sec LV V1 max P.7 mmHg Ao max P.6 mmHg LV V1 VTI: 20.4 cm Ao mean P.2 mmHg TEAGAN(I,D): 3.4 cm2 Ao V2 VTI: 23.2 cm TEAGAN(V,D): 3.6 cm2 sev ratio: 0.88 TEAGAN indexed to BSA (cm^2/m^2): 1.7 MV E max noel: 64.1 cm/sec PA V2 max: 84.2 cm/sec MV A max noel: 42.5 cm/sec PA V2 mean: 59.1 cm/sec MV E/A: 1.5 PA mean P.5 mmHg Med Peak E' Noel: 9.4 cm/sec PA pr(Accel): 19.1 mmHg E/E' med: 6.8 Lat Peak E' Noel: 18.6 cm/sec E/E' lat: 3.4 E/e' average: 5.1 MV dec time: 0.12 sec SVLVOT): 79.1 ml Reading Physician:02:00 PM
--- NOTE | 2021-12-17 00:50 | PC.NURSE ---
Multiple attempts to start IV, Picc nurse was in and attempted as well, none were successful. Pt to remain in ED over night and will have further studies in the am.
[2021-12-17 00:55] LABS: Add Manual Diff / Slide Review NO; Basophils Absolute Auto 100 /uL (0-100); Basophils Percent Auto 2.1 % (0-2); Eosinophils Absolute Auto 100 /uL (0-450); Eosinophils Percent Auto 1.5 % (2-4); Hemoglobin 12.7 g/dL (12.0-16.0); Lymphocytes Absolute Auto 1800 /uL (1100-4500); Mean Corpuscular HGB Conc 35.1 % (30-36); Mean Corpuscular Hemoglobin 31.2 PG (26-34); Mean Corpuscular Volume 88.8 fL (80-100); Monocytes Absolute Auto 500 /uL (0-900); Monocytes Percent Auto 7.3 % (3-14); Neutrophils Absolute Auto 4200 /uL (1500-7000); Neutrophils Percent Auto 62.1 % (50-75); Platelet Count 218 X10^3/uL (150-400); Red Blood Cell Count 4.06 X10^6/uL (4.0-5.2); Red Cell Distribution Width 13.9 % (11.6-14.8); White Blood Cell Count 6.7 X10^3/uL (4.5-11.0)
[2021-12-17 01:10] LABS: Alanine Aminotransferase 15 IU/L (<35); Albumin 4.6 g/dL (3.5-5.0); Albumin Globulin Ratio 1.3 (1.0-2.8); Alkaline Phosphatase 51 U/L (38-126); Aspartate Aminotransferase 23 IU/L (14-36); BUN Creatinine Ratio 14.5 (6-22); Bilirubin Total 0.5 mg/dL (0.2-1.3); Blood Urea Nitrogen 9 mg/dL (7-17); Calcium 9.4 mg/dL (8.4-10.2); Carbon Dioxide 25 mmol/L (22-32); Chloride 110 mmol/L (98-107); Creatine Kinase 86 U/L (30-135); Estimated Glomerular Filt Rate > 60.0 mL/min (>60); Globulin 3.5 g/dL (1.7-4.1); Glucose 98 mg/dL (70-100); HEMOLYSIS < 15 (0-50); Potassium 3.7 mmol/L (3.4-5.1); Sodium 140 mmol/L (137-145); Total Protein 8.1 g/dL (6.3-8.2)
[2021-12-17 01:22] LABS: Troponin I < 0.012 ng/mL (0.01-0.034)
--- NOTE | 2021-12-17 05:48 | PM.HP.1 ---
History of Present Illness History of Present Illness Date Patient Seen: 12/17/21 Time Patient Seen: 01:00 Chief complaint: sudden visual changes Narrative: Ms. Topete is a 31W PMH asthma, chronic headaches who presents with sudden vision changes. She was in her normal state of health and at 7:15pm on 12/16 she stood up and noted sudden vision changes. She noted distinct bilateral upper left visual field loss. She noted she was having headaches. She says usually she has left sided headache, which she thinks may be migraines, but has not been formally diagnosed. This headache was much more broad in the anterior and posterior part of her head and also noted to be bilateral. She was activated as a code stroke on arrival. NIH initially 1, she had no other symptoms with no speech, swallowing, or upper/lower extremities weakness or numbness. In the ED workup was done, she was mildly hypertensive. She was a difficult IV placement, IV PICC was unable to be placed in either arm by overnight team. Labs were notable for WBC 6.7, Hgb 12.7, trop negative. Creatinine 0.62. CT head negative for an acute process. Family history: grandmother with migraines, aunt with stroke Patient History Medical History Asthma Family & Social History Safety & Behavioral: Feels Safe in Current Yes Environment Been Physically Hurt or No Threatened By a Person Tobacco & Substance use: Smoking Status Former smoker alcohol intake frequency 0-2 drinks per day Substance Use Type former substance user Meds Home Medications and Allergies Home Medications Medication Instructions Recorded Confirmed Type methadone 40 mg soluble tablet 40 mg PO DAILY 02/01/20 06/13/20 History albuterol sulfate 90 mcg/actuation 2 inh INHALATION QID PRN #18 gram 06/13/20 06/13/20 Rx aerosol inhaler cyclobenzaprine 10 mg tablet 10 mg PO BEDTIME PRN #14 tab 06/14/20 Rx prednisone 10 mg tablet See Rx Instructions .ROUTE 06/14/20 Rx .COMPLEX #30 tab Allergies Allergy/AdvReac Type Severity Reaction Status Date / Time cefaclor [From CECLOR] Allergy Unknown Verified 06/13/20 15:40 sulfamethoxazole Allergy Unknown Verified 06/13/20 15:40 [From SEPTRA] trimethoprim [From SEPTRA] Allergy Unknown Verified 06/13/20 15:40 Review of Systems Review of Systems Narrative: 14 systems reviewed and negative aside from what is noted in HPI Exam Vital Signs (past 8 hours): - 12/16/21 23:11 Pulse Rate 83 Blood Pressure 145/93 H Pulse Oximetry 99 Oxygen Delivery Method Room Air Narrative Exam Narrative: GEN: no acute distress HEENT: moist mucous membranes, PERRL NECK: trachea midline, no JVD PULM: clear bilaterally, no wheezes, rhonchi, rales CV: regular rate and rhythmm, no murmurs ABD: soft, nontender, nondistended, no organomegaly, normal bowel sounds EXT: warm and well perfused with no edema NEURO: awake, alert, oriented, moving all extremities PSYCH: trachea midline, no JVD Objective Labs Result Diagrams: 12/17/21 00:45 12/17/21 00:45 Labs: Laboratory Results - last 24 hr 12/16/21 12/17/21 12/17/21 21:08 00:45 00:45 WBC 6.7 RBC 4.06 Hgb 12.7 Hct 36.0 MCV 88.8 MCH 31.2 MCHC 35.1 RDW 13.9 Plt Count 218 Neut % (Auto) 62.1 Lymph % (Auto) 27.0 [place] % (Auto) 7.3 Eos % (Auto) 1.5 L Baso % (Auto) 2.1 H Neut # (Auto) 4200 Lymph # (Auto) 1800 [place] # (Auto) 500 Eos # (Auto) 100 Baso # (Auto) 100 Sodium 140 Potassium 3.7 Chloride 110 H Carbon Dioxide 25 BUN 9 Creatinine 0.62 Estimated GFR > 60.0 BUN/Creatinine Ratio 14.5 Glucose 98 Calcium 9.4 Total Bilirubin 0.5 AST 23 ALT 15 Alkaline Phosphatase 51 Total Creatine Kinase 86 CK-MB (CK-2) TNP CK-MB (CK-2) Rel Index TNP Troponin I < 0.012 Total Protein 8.1 Albumin 4.6 Globulin 3.5 Albumin/Globulin Ratio 1.3 U Opiates 300ng/mL cut Negative Ur Oxycodone Screen Negative Urine Methadone Screen Negative Ur Barbiturates Screen Negative U Tricyclic Antidepress Negative Ur Phencyclidine Scrn Negative Ur Amphetamines Screen Negative U Methamphetamines Scrn Negative Ur MDMA Scrn (Ecstasy) Negative U Benzodiazepines Scrn Negative Urine Cocaine Screen Negative U Marijuana (THC) Screen Negative Assessment & Plan Assessment & Plan narrative: Ms. Brother is a 31W who presents with sudden acute vision loss. 1. Acute vision loss from probable CVA -concern for homonyous hemianopsia on exam -CT head negative -NIH initially 1 -patient presented within window for TPA, after discussion betweee patient, telestroke, and ED physician she did not want to pursue TPA, and her symptoms were already improving -ordered for aspirin, statin -MRI ordered, ECHO ordered -unable to get CT angio/head neck due to inability to get venous access -ordered for PICC -think unlikely that patient has large vessel occlusion, but will try to get CTA to rule out cerebral dissection or aneurysm -ordered ESR, CRP to eval for possible inflammatory cause of CVA in patient this young 2. Headache -probable secondary to migraine, also ordered CT angio to rule out dissection or aneurysm -ordered ibuprofen and sumatriptan CODE: Full Proxy: Kristy Brothers, mother I have utilized all available resources to reconcle the patient's home medications. Time Spent With Patient Critical Care time: I spent a total of [] minutes of critical care time on this patient's care today; this time is exclusive of procedural time. Quality MIPS - Admit I confirm the patient?s Advance Care Plan is present, Code status is documented, Surrogate decision maker is in patient?s record [If Yes, STOP here]: Yes
[2021-12-17 08:10] LABS: COVID19 -Nasal RAPID POSITIVE (Negative)
--- NOTE | 2021-12-17 09:10 | SLP.IPNOTE ---
Received order. Pt does not appear to have speech or swallow difficulties. Before screening sp/sw, reviewed pt status with Dr. Quintero who indicated no ST needs at this time and cancelled order.
[2021-12-17] MEDS: ASPIRIN EC 81 MG TABLET PO (09:37)
[2021-12-17] MEDS: IBUPROFEN 600 MG TABLET PO ×2 (10:08→17:08)
--- NOTE | 2021-12-17 10:09 | DI.RAD.S_ITS ---
PROCEDURE: XR CHEST FOR PICC 1V INDICATIONS: post double lumen picc placement COMPARISON: [facility], CR, XR CHEST 2V, 06/13/2020, 10:56. FINDINGS: PICC was placed by the intravenous therapy team from the left side. Chest x-ray demonstrates the tip of PICC projecting to the area of cavoatrial junction. No pneumothorax IMPRESSION: Tip of PICC projects to the area of cavoatrial junction. No pneumothorax. Approved by: Quinton Beatty M.D. on 12/17/2021 at 10:00
--- NOTE | 2021-12-17 12:26 | PT-IP ANOTE ---
PT eval received. Pt is still in the ER pending admission. EMR reviewed. Talked with nurse and stated that pt is independent with mobility and ambulates by herself to the toilet. No PT needs at this time. Informed Dr. Carroll and agreed to d/c PT eval order.
--- NOTE | 2021-12-17 12:28 | OT.IPNOTE ---
Called ER nurse in regards on doing OT eval, pt is having ECHO now. Therefore check on the pt later. Per nursing pt to be coming up to the floor when bed available.
[2021-12-17] MEDS: CLOPIDOGREL 75 MG TABLET 300 MG PO (17:01)
--- NOTE | 2021-12-17 17:16 | PM.DS.1 ---
History of Present Illness History of Present Illness Date Patient Seen: 12/17/21 Time Patient Seen: 17:16 Chief complaint: sudden visual changes Narrative: Per Dr. Quintero, Brothjose elias is a 31W PMH asthma, chronic headaches who presents with sudden vision changes. She was in her normal state of health and at 7:15pm on 12/16 she stood up and noted sudden vision changes. She noted distinct bilateral upper left visual field loss. She noted she was having headaches. She says usually she has left sided headache, which she thinks may be migraines, but has not been formally diagnosed. This headache was much more broad in the anterior and posterior part of her head and also noted to be bilateral. She was activated as a code stroke on arrival. NIH initially 1, she had no other symptoms with no speech, swallowing, or upper/lower extremities weakness or numbness. In the ED workup was done, she was mildly hypertensive. She was a difficult IV placement, IV PICC was unable to be placed in either arm by overnight team. Labs were notable for WBC 6.7, Hgb 12.7, trop negative. Creatinine 0.62. CT head negative for an acute process. Family history: grandmother with migraines, aunt with stroke Discharge Providers Provider Date of admission: 12/17/21 00:33 Discharge Date: 12/17/21 Primary care physician: Vernon Fernandes DO Consults: 12/17/21 00:48 Consult to Occupational Therapy Evaluate & Treat Comment: Physician Instructions: Evaluate and treat Consult to Physical Therapy Evaluate & Treat Comment: Physician Instructions: Evaluate and Treat Consult to Speech Therapy Evaluate & Treat Comment: Physician Instructions: Evaluate and treat Discharge provider: Jose Carroll DO Summary Hospital Course Discharge Diagnosis: 1. CVA 2. Headache 3. COVID 19 infection Hospital Course: This is a 31 year old female with PMH of asthma, headaches, COVID 19 infection about 2 months ago who presented with sudden onset of vision loss of her upper visual melton. She was observed in the emergency room and briefly on the hospital floor and had no progression of symptoms or development of new neurological symptoms. MRI confirmed an acute infarct. No aneurysm or narrowing of her carotids was seen on aniography with MR stroke protocol. Echocardiogram was unremarkable. She was given full dose aspirin and loading dose of plavix. Discussed with patient risks and benefits of continued observation overnight with OT evaluation or discharge home. Patient elected for discharge home. Given stability and no functional deficits currently this is reasonably safe at this time. The patient, and later discussion with her mother as well, were advised of when to return including progression of neurological symptoms. The patient was counseled on signs of stroke and questions were answered. It is likely that her COVID infection contributed towards an increased stroke risk, though given her age, clean carotids she may benefit from further outpatient evaluation. I recommended that she follow up with an sports athletic trainer as well and that she not drive until that evaluation. She was discharged on aspirin, statin for life and plavix for 21 days for additional stroke reduction benefits. She also has hormonal implanted control, I would recommend further discussion with her SILICA MIXER OPERATOR as an outpatient for possible removal given her stroke. Exam Vital Signs (past 8 hours): - 12/17/21 09:23 12/17/21 09:24 12/17/21 09:30 Pulse Rate 92 H 94 H 85 Blood Pressure 106/62 133/80 Pulse Oximetry 98 99 98 12/17/21 10:00 12/17/21 10:30 12/17/21 11:00 Pulse Rate 90 103 H 90 Blood Pressure Pulse Oximetry 98 97 97 12/17/21 11:30 12/17/21 11:31 12/17/21 12:00 Pulse Rate 117 H 94 H 90 Blood Pressure 133/79 127/68 Pulse Oximetry 98 98 95 12/17/21 12:30 12/17/21 12:31 12/17/21 13:00 Pulse Rate 89 83 98 H Blood Pressure 110/57 L 123/74 Pulse Oximetry 97 98 98 12/17/21 13:30 12/17/21 14:00 12/17/21 14:30 Pulse Rate 90 86 Blood Pressure 115/68 126/74 Pulse Oximetry 96 96 97 Oxygen Delivery Method Room Air Narrative Exam Narrative: GEN: no acute distress PULM: clear bilaterally, no wheezes, rhonchi, rales CV: regular rate and rhythmm, no murmurs NEURO: awake, alert, oriented, moving all extremities Objective Labs Result Diagrams: 12/17/21 00:45 12/17/21 00:45 Labs: Laboratory Results - last 24 hr 12/16/21 12/17/21 12/17/21 21:08 00:45 00:45 WBC 6.7 RBC 4.06 Hgb 12.7 Hct 36.0 MCV 88.8 MCH 31.2 MCHC 35.1 RDW 13.9 Plt Count 218 Neut % (Auto) 62.1 Lymph % (Auto) 27.0 [place] % (Auto) 7.3 Eos % (Auto) 1.5 L Baso % (Auto) 2.1 H Neut # (Auto) 4200 Lymph # (Auto) 1800 [place] # (Auto) 500 Eos # (Auto) 100 Baso # (Auto) 100 Sodium 140 Potassium 3.7 Chloride 110 H Carbon Dioxide 25 BUN 9 Creatinine 0.62 Estimated GFR > 60.0 BUN/Creatinine Ratio 14.5 Glucose 98 Calcium 9.4 Total Bilirubin 0.5 AST 23 ALT 15 Alkaline Phosphatase 51 Total Creatine Kinase 86 CK-MB (CK-2) TNP CK-MB (CK-2) Rel Index TNP Troponin I < 0.012 Total Protein 8.1 Albumin 4.6 Globulin 3.5 Albumin/Globulin Ratio 1.3 U Opiates 300ng/mL cut Negative Ur Oxycodone Screen Negative Urine Methadone Screen Negative Ur Barbiturates Screen Negative U Tricyclic Antidepress Negative Ur Phencyclidine Scrn Negative Ur Amphetamines Screen Negative U Methamphetamines Scrn Negative Ur MDMA Scrn (Ecstasy) Negative U Benzodiazepines Scrn Negative Urine Cocaine Screen Negative U Marijuana (THC) Screen Negative SARS-CoV-2 (PCR) 12/17/21 07:58 WBC RBC Hgb Hct MCV MCH MCHC RDW Plt Count Neut % (Auto) Lymph % (Auto) [place] % (Auto) Eos % (Auto) Baso % (Auto) Neut # (Auto) Lymph # (Auto) [place] # (Auto) Eos # (Auto) Baso # (Auto) Sodium Potassium Chloride Carbon Dioxide BUN Creatinine Estimated GFR BUN/Creatinine Ratio Glucose Calcium Total Bilirubin AST ALT Alkaline Phosphatase Total Creatine Kinase CK-MB (CK-2) CK-MB (CK-2) Rel Index Troponin I Total Protein Albumin Globulin Albumin/Globulin Ratio U Opiates 300ng/mL cut Ur Oxycodone Screen Urine Methadone Screen Ur Barbiturates Screen U Tricyclic Antidepress Ur Phencyclidine Scrn Ur Amphetamines Screen U Methamphetamines Scrn Ur MDMA Scrn (Ecstasy) U Benzodiazepines Scrn Urine Cocaine Screen U Marijuana (THC) Screen SARS-CoV-2 (PCR) Positive [facility] Medical History Asthma Social History Smoking Status: Former smoker alcohol intake: current Discharge Plan Discharge Plan Patient Disposition: Home Provider Discharge Comment: Ms. Topete was admitted with sudden visual problem. There was concern so she had testing for this. Her vision problem was improving and she was able to be discharged home. Discharge orders & Medications Prescriptions: New atorvastatin 80 mg tablet 80 mg PO BEDTIME 90 Days Qty: 90 0RF clopidogrel 75 mg Tablet 75 mg PO DAILY 21 Days Qty: 21 0RF aspirin [Adult Aspirin Regimen] 81 mg tablet,delayed release (DR/EC) 81 mg PO DAILY 90 Days Qty: 90 0RF Continued albuterol sulfate 90 mcg/actuation HFA aerosol inhaler 2 inh INHALATION QID PRN (Reason: Wheezing) Qty: 18 0RF Discontinued cyclobenzaprine 10 mg tablet 10 mg PO BEDTIME PRN (Reason: muscle spasm) Qty: 14 0RF prednisone 10 mg tablet See Rx Instructions .ROUTE .COMPLEX Qty: 30 0RF Rx Instructions: Day 1,2,3: 40mg PO Daily Day 4,5,6: 30mg PO Daily Day 7,8,9: 20mg PO Daily Day 10,11,12: 10mg PO Daily #30 methadone 40 mg Tablet,Soluble 40 mg PO DAILY 0RF Label Comments: pt unsure of dose but believes it is 40mg Follow up/Referrals: Vernon Fernandes DO [Primary Care Provider] - Diet/Activity/Treatments Diet: Diet as Tolerated and Regular Activity: As tolerated Discharge Data Primary Care Provider: Vernon Fernandes Quality VTE Deep Vein Thrombosis/Pulmonary Embolism Present on Admission: No
--- NOTE | 2021-12-17 17:23 | OT.IPNOTE ---
Not able to see pt for OT eval as pt leaving AMA.
== END 2021-12-17 17:24 | disposition home or self-care (01) | DRG 45 ==
LOC: ED 23:55 → AC 12-17 07:51
PROVIDERS: Admitting Provider Internal Medicine; Emergency Provider Emergency Medicine; PCP Family Medicine; Referring Provider Emergency Medicine; Visit Provider Internal Medicine
DX: I63.9 Cerebral infarction, unspecified (principal); H54.3 Unqualified visual loss, both eyes; R51.9 Headache, unspecified; U07.1 COVID-19; R29.701 NIHSS score 1; J45.909 Unspecified asthma, uncomplicated; F11.20 Opioid dependence, uncomplicated; F17.210 Nicotine dependence, cigarettes, uncomplicated; Z86.16 Personal history of COVID-19
CPT/HCPCS: 36415; 70450; 70548; 70553; 80053; 80305; 81003; 81025; 82550; 84484; 85025; 87635; 93306; 99284; 99285; C9803; G0378

== ENCOUNTER 2022-11-06 01:27 | Emergency (ER) | payer OTHER, MEDICAID, SELFPAY ==
[2021-12-17 17:10] VITALS: BMI 25.5
[2022-11-06 01:35] VITALS: BP 136/80; PULSE 100; RESP 18; TEMP 36.5; O2SAT 100; BMI 25.0
--- NOTE | 2022-11-06 02:10 | ED_ITS ---
HPI - General Adult General Chief complaint: Upper Respiratory Symptoms Stated complaint: high blood pressure/strep throat x9 days Time Seen by Provider: 11/06/22 01:56 Source: patient Mode of arrival: Ambulatory Limitations: no limitations History of Present Illness HPI narrative: Patient is a 32-year-old female. Two days ago was diagnosed with strep throat. She was seen at outside facility. Was given amoxicillin. Has had approximately 1 day of the antibiotics. Since starting the antibiotics she reports no improvement of her symptoms. She actually has had symptoms for about 9 days now. No rashes. She states when she takes the medication she starts to feel tingling all over her body. There has been no vomiting. No problems breathing. She also is having palpitations. She also states that her blood pressures been elevated. She has a history of a stroke. Her stroke symptoms were visual changes. She is not have a any current visual changes. She does recently completed a Holter monitor for evaluation of her stroke symptoms. She does not have the results of this. She was concerned about the symptoms she was having which she was taking her medications, the palpitations, the high blood pressure, the lack of improvement after 1 day of antibiotics. Related Data Previous Rx's Medication Instructions Recorded albuterol sulfate 90 mcg/actuation 2 inh inhalation QID PRN Wheezing 06/13/20 aerosol inhaler #18 grams azithromycin 250 mg tablet See Rx Instructions PO .COMPLEX #6 11/06/22 tabs Allergies Allergy/AdvReac Type Severity Reaction Status Date / Time cefaclor [From CECLOR] Allergy Unknown Verified 08/12/22 09:53 sulfamethoxazole Allergy Unknown Verified 08/12/22 09:53 [From SEPTRA] trimethoprim [From SEPTRA] Allergy Unknown Verified 08/12/22 09:53 Review of Systems Review of Systems ROS Unobtainable: All systems reviewed & are unremarkable except as noted in HPI and below Patient History Medical History Asthma Social History Smoking Status: Former smoker alcohol intake: current Smoking Status: Former smoker alcohol intake frequency: 0-2 drinks per day Substance Use Type: former substance user Exam Initial Vital Signs Initial Vital Signs: Vital Signs Temperature 97.7 F 11/06/22 01:35 Pulse Rate 100 H 11/06/22 01:35 Respiratory Rate 18 11/06/22 01:35 Blood Pressure 136/80 11/06/22 01:35 Pulse Oximetry 100 11/06/22 01:35 Oxygen Delivery Method 11/06/22 01:35 Const General: cooperative, comfortable and No ill appearing [facility] Head: normal to inspection and atraumatic Resp Effort & Inspection: normal respiratory effort Auscultation: clear to auscultation bilaterally Cardio Rate: regular rate Rhythm: regular rhythm Skin General: no rashes or lesions noted Neuro General: patient alert, patient awake, patient oriented x3 and moves all extremities Speech: speech normal Gait: normal gait Extrem General: normal to inspection Course Vital Signs Vital signs: Vital Signs - 8 hr 11/06/22 01:35 11/06/22 02:28 Temperature 97.7 F 97.8 F Pulse Rate 100 H 88 Respiratory Rate 18 16 Blood Pressure 136/80 137/72 Pulse Oximetry 100 100 Oxygen Delivery Method Room Air Room Air Medical Decision Making MDM Narrative Medical decision making narrative: Not surprised with the patient has not had improvement of her symptoms after just 1 day of antibiotics. On her exam today she has a fairly benign oropharynx. No signs of retropharyngeal abscess or peritonsillar abscess. Unsure these symptoms she is getting with the amoxicillin are allergic reaction. It certainly does not meet criteria for an anaphylactic reaction. Had a discussion with the patient regarding options to include continuing with the antibiotics, trying a injection of Bicillin so she did not have to take the antibiotics by mouth or switching to a different antibiotic all together. After this discussion we made the decision to switch to azithromycin. Patient was having palpitations here in the emergency department however she had a normal rate and rhythm on the exam today. We discussed this. Advised that she continue to follow-up with her windows systems architect and neurologist for the results of the Holter monitor. She had an unremarkable blood pressure here in the ER. Low suspicion for CVA/TIA. Will discharge patient home. She was given return precautions and follow-up instructions. She expressed understanding and agreement. 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 It was electronically transmitted to [facility] per your request. Keep all of your scheduled medical appointments. Return to the emergency department for new symptoms. Prescriptions: New azithromycin 250 mg tablet See Rx Instructions .ROUTE .COMPLEX Qty: 6 0RF Rx Instructions: For 250 mg dose pack: take 500 mg today (day 1), then 250 mg for 4 days (days 2-5) No Action albuterol sulfate 90 mcg/actuation HFA aerosol inhaler 2 inh INHALATION QID PRN (Reason: Wheezing) Qty: 18 0RF Referrals: Vernon Fernandes DO [Primary Care Provider] - Stand Alone Forms: Patient Portal/API
[2022-11-06 02:28] VITALS: BP 137/72; PULSE 88; RESP 16; TEMP 36.6; O2SAT 100
== END 2022-11-06 02:28 | disposition home or self-care (01) ==
PROVIDERS: Emergency Provider Emergency Medicine; PCP Family Medicine
DX: J02.0 Streptococcal pharyngitis (principal); R00.2 Palpitations
CPT/HCPCS: 99281

== ENCOUNTER → 2025-08-12 18:42 | Outpatient (CLI) | payer OTHER, SELFPAY ==
[2021-12-17 17:10] VITALS: BMI 25.5
--- NOTE | 2025-08-12 18:44 | DI.MRI.S_ITS ---
PROCEDURE: MR HEAD/BRAIN WO CON INDICATIONS: Cerebral infarction TECHNIQUE: Noncontrast axial T1 spin echo, axial T2 fast spin echo, sagittal and axial FLAIR, coronal T2 fast spin echo, axial gradient echo, axial diffusion and ADC through the brain. COMPARISON: [facility], MR, MR STROKE, 12/17/2021, 14:39. [facility], CT, CT ANGIO HEAD AND NECK, 02/21/2024, 0:00. [facility], CT, CT HEAD WITHOUT CONTRAST, 02/21/2024, 0:00. FINDINGS: Image quality: Excellent. CSF Spaces: Basal cisterns are patent. No extra-axial fluid collections. Ventricles are normal in size and shape. Brain: No intracranial masses or hemorrhage. Mason/white matter interface is normal. Brainstem appears normal. Diffusion-weighted images demonstrate no acute infarct. There is a small focus of encephalomalacia seen within the inferior right occipital lobe, as on series 7, image 10 and on series 8, image 10 and on series 9, image 25. Normal intravascular flow voids are present. Skull and face: Calvarium has normal marrow signal. Orbits appear normal. Sinuses: Sinuses and mastoids are clear. IMPRESSION: Right occipital lobe encephalomalacia, which corresponds to the known prior infarction at this site. No additional infarctions can be seen. Dictated by: Dejan Cardona M.D. on 08/13/2025 at 10:23 Approved by: Dejan Cardona M.D. on 08/13/2025 at 10:26
== END ==
LOC: MRI 18:43
PROVIDERS: PCP Family Medicine; Referring Provider Family Medicine; Visit Provider Family Medicine
DX: I63.9 Cerebral infarction, unspecified (principal); G93.89 Other specified disorders of brain; G43.009 Migraine without aura, not intractable, without status migrainosus; R42 Dizziness and giddiness
CPT/HCPCS: 70551